=== PATIENT | female | born 1965 | race Caucasian/White ===

== ENCOUNTER 2017-02-27 17:52 | Emergency (ER) | payer OTHER ==
[~2017-02-27] VITALS: Wt 69.9 kg
[~2017-02-27 17:52] MED LIST: ALEVE220 MG PO; AUGMENTIN 875 M1 TAB PO; AUGMENTIN 875875 MG PO; BACTRIM DS 8001 TA1 PO; BENTYL20 MG PO; CALCIUM 600/VIT1 TAB PO; CIPRODEX 0.3%-7.5 ML OT; ENTERIC ASPIRI325 MG PO; FISH OIL 10001000 MG PO; FLEXERIL10 MG PO; HYDROCODONE BIT1 T11 PO; LEVOFLOXACIN500 MG PO; LEXAPRO; MOTRIN800 MG PO; NAPROSYN500 MG PO; NKHM; PERCOCET 325 MG1 TA2 PO; TRAMADOL HCL50 MG PO; ZOFRAN4 MG PO; Zofran4 MG PO
[2017-02-27 18:21] VITALS: BP 109/54
[2017-02-27 18:48] LABS: BASO # 0.1 10*3/uL (0.0-0.1); BASO % 0.6 % (0.0-1.0); EOS # 0.1 10*3/uL (0.0-0.4); EOS % 0.8 % (1.0-4.0); HEMOGLOBIN 12.9 g/dl (12.0-16.0); LYMPH # 2.6 10*3/uL (1.3-4.4); LYMPH % 29.3 % (27.0-41.0); MEAN CORPUSCULAR HGB 30.2 pg (27.0-31.0); MEAN CORPUSCULAR HGB CONC 33.9 g/dl (33.0-37.0); MEAN PLATELET VOLUME 9.8 fl (9.6-12.3); MONO # 0.5 10*3/uL (0.1-1.0); MONO % 5.3 % (3.0-9.0); NEUT # 5.6 10*3/uL (2.3-7.9); NEUT % 63.7 % (47.0-73.0); PLATELET COUNT AUTOMATED 193 10*3/uL (130-400); RED BLOOD COUNT 4.27 10*6/uL (4.10-5.10); RED CELL DISTRI WIDTH 12.2 % (0-14.5); WHITE BLOOD COUNT 8.8 10*3/uL (4.8-10.8)
[2017-02-27 19:04] LABS: ALBUMIN 4.1 gm/dl (3.1-4.5); ALKALINE PHOSPHATASE 69 U/L (45-117); BILIRUBIN, TOTAL 0.4 mg/dl (0.2-1.0); BUN 16 mg/dl (7-24); CARBON DIOXIDE 27 mmol/L (21-32); CHLORIDE 107 mmol/L (98-107); EST GLOM FILT AFRICAN AMERICAN > 60 ml/min; GLUCOSE 89 mg/dL (65-99); SGOT/AST 21 IU/L (3-35); SGPT/ALT 26 U/L (12-78); SODIUM 147 mmol/L (136-145); TOTAL PROTEIN 7.2 gm/dL (6.4-8.2)
== END 2017-02-27 19:28 | disposition left against medical advice (07) ==
LOC: ED 17:52
PROVIDERS: Emergency Medicine
DX: R10.33 Periumbilical pain (principal); Z98.51 Tubal ligation status; Z98.890 Other specified postprocedural states; Z90.710 Acquired absence of both cervix and uterus

== ENCOUNTER → 2017-03-07 | Outpatient (CLI) | payer OTHER | END | disposition home or self-care (01) | LOC: MAMMO 03-06 11:30 | DX: Z12.31 Encounter for screening mammogram for malignant neoplasm of breast (principal) ==

== ENCOUNTER 2018-01-06 11:53 | Emergency (ER) | payer OTHER ==
[~2018-01-06] VITALS: Ht 160 cm; Wt 68.9 kg
[2018-01-06 11:57] VITALS: BP 105/47
[2018-01-06 12:21] LABS: BASO % 0.3 % (0.0-1.0); EOS % 0.2 % (1.0-4.0); HEMATOCRIT 36.9 % (37.0-47.0); HEMOGLOBIN 12.4 g/dl (12.0-16.0); LYMPH # 1.3 10*3/uL (1.3-4.4); LYMPH % 10.5 % (27.0-41.0); MEAN CELL VOLUME 89.1 fl (81.0-99.0); MEAN CORPUSCULAR HGB CONC 33.6 g/dl (33.0-37.0); MEAN PLATELET VOLUME 9.9 fl (9.6-12.3); MONO # 0.9 10*3/uL (0.1-1.0); NEUT # 10.3 10*3/uL (2.3-7.9); NEUT % 81.4 % (47.0-73.0); PLATELET COUNT AUTOMATED 221 10*3/uL (130-400); RED BLOOD COUNT 4.14 10*6/uL (4.10-5.10); RED CELL DISTRI WIDTH 11.7 % (0-14.5); WHITE BLOOD COUNT 12.7 10*3/uL (4.8-10.8)
[2018-01-06 12:37] LABS: ALBUMIN 3.6 gm/dl (3.1-4.5); ALKALINE PHOSPHATASE 78 U/L (45-117); BUN 9 mg/dl (7-24); CHLORIDE 104 mmol/L (98-107); CREATININE 0.78 mg/dL (0.55-1.02); POTASSIUM 3.9 mmol/L (3.5-5.1); SGOT/AST 19 IU/L (3-35); SGPT/ALT 24 U/L (12-78); SODIUM 138 mmol/L (136-145); TOTAL PROTEIN 7.6 gm/dL (6.4-8.2)
[2018-01-06 12:39] LABS: TROPONIN I < 0.015 ng/ml (<0.045)
[2018-01-06] MEDS ORDERED: PREDNISONE50 MG PO (15:08)
[2018-01-06] MEDS ORDERED: LEVAQUIN750 M1 PO (15:08)
== END 2018-01-06 15:16 | disposition home or self-care (01) ==
LOC: ED 11:53
PROVIDERS: Student in an Organized Health Care Education/Training Program
DX: R05 Cough (principal); Z98.51 Tubal ligation status; Z98.890 Other specified postprocedural states

== ENCOUNTER 2019-03-18 00:12 | Emergency (ER) | payer OTHER ==
[~2019-03-18] VITALS: Ht 160 cm; Wt 70.3 kg
[~2019-03-18 00:12] MED LIST changes: +LEVAQUIN750 M1 PO; +PREDNISONE50 MG PO
[2019-03-18 00:35] VITALS: BP 111/48
[2019-03-18] MEDS ORDERED: OMNICEF300 MG PO ×2 (00:50→00:51)
[2019-03-18] MEDS ORDERED: ZOFRAN4 MG PO ×2 (00:50→00:51)
== END 2019-03-18 01:49 | disposition home or self-care (01) ==
LOC: ED 00:12
DX: H66.93 Otitis media, unspecified, bilateral (principal); H72.91 Unspecified perforation of tympanic membrane, right ear

== ENCOUNTER 2019-04-18 07:57 | Emergency (ER) | payer OTHER ==
[~2019-04-18] VITALS: Ht 160 cm; Wt 68.9 kg
[~2019-04-18 07:57] MED LIST changes: +OMNICEF300 MG PO
[2019-04-18 07:58] VITALS: BP 107/49
== END 2019-04-18 08:45 | disposition home or self-care (01) ==
LOC: ED 07:57
DX: H72.91 Unspecified perforation of tympanic membrane, right ear (principal); Z79.2 Long term (current) use of antibiotics

== ENCOUNTER 2019-04-28 18:42 | Emergency (ER) | payer OTHER ==
[~2019-04-28] VITALS: Ht 160 cm; Wt 67.3 kg
[2019-04-28 18:42] VITALS: BP 119/71
== END 2019-04-28 19:35 | disposition home or self-care (01) ==
LOC: ED 18:42
DX: S91.114A Laceration without foreign body of right lesser toe(s) without damage to nail, initial encounter (principal); Z79.2 Long term (current) use of antibiotics; Z79.899 Other long term (current) drug therapy; Z90.710 Acquired absence of both cervix and uterus; W22.8XXA Striking against or struck by other objects, initial encounter; Y93.89 Activity, other specified; Y92.098 Other place in other non-institutional residence as the place of occurrence of the external cause; Y99.8 Other external cause status

== ENCOUNTER 2020-04-03 12:48 | Emergency (ER) | payer OTHER ==
[~2020-04-03] VITALS: Ht 160 cm; Wt 72.1 kg
[2020-04-03 13:00] VITALS: BP 113/54
[2020-04-03] MEDS ORDERED: PREDNISONE20 M1 PO (13:49)
[2020-04-03] MEDS ORDERED: VISTARIL25 MG PO (13:49)
== END 2020-04-03 13:51 | disposition home or self-care (01) ==
LOC: ED 12:48
DX: L25.9 Unspecified contact dermatitis, unspecified cause (principal)

== ENCOUNTER → 2020-11-20 | Outpatient (CLI) | payer OTHER ==
[~2020-11-20] MED LIST changes: +PREDNISONE20 M1 PO; +VISTARIL25 MG PO
== END | disposition home or self-care (01) ==
LOC: MAMMO 11-09 10:30
PROVIDERS: ATTEND Nurse Practitioner Family
DX: Z12.31 Encounter for screening mammogram for malignant neoplasm of breast (principal)

== ENCOUNTER 2021-06-01 20:28 | Inpatient (IN) | payer OTHER ==
[~2021-06-01] VITALS: Ht 160 cm; Wt 71.9 kg
[2021-06-01 21:09] VITALS: BP 113/46
[2021-06-01 22:46] LABS: BASO % 0.2 % (0.0-1.0); EOS % 0.1 % (1.0-4.0); HEMATOCRIT 39.6 % (37.0-47.0); LYMPH # 1.5 10*3/uL (1.3-4.4); LYMPH % 12.1 % (27.0-41.0); MEAN CELL VOLUME 89.8 fl (81.0-99.0); MEAN CORPUSCULAR HGB 30.6 pg (27.0-31.0); MEAN CORPUSCULAR HGB CONC 34.1 g/dl (33.0-37.0); MONO # 0.8 10*3/uL (0.1-1.0); MONO % 6.3 % (3.0-9.0); NEUT # 9.8 10*3/uL (2.3-7.9); PLATELET COUNT AUTOMATED 338 10*3/uL (130-400); RED BLOOD COUNT 4.41 10*6/uL (4.10-5.10); RED CELL DISTRI WIDTH 12.1 % (0-14.5); WHITE BLOOD COUNT 12.1 10*3/uL (4.8-10.8)
[2021-06-01 23:23] LABS: ALBUMIN 3.3 gm/dl (3.1-4.5); ALKALINE PHOSPHATASE 65 U/L (45-117); BUN 10 mg/dl (7-24); CHLORIDE 108 mmol/L (98-107); CREATININE 0.61 mg/dL (0.55-1.02); POTASSIUM 3.7 mmol/L (3.5-5.1); SGOT/AST 18 IU/L (3-35); SGPT/ALT 29 U/L (12-78); SODIUM 140 mmol/L (136-145); TOTAL PROTEIN 6.7 gm/dL (6.4-8.2)
[2021-06-02 00:15] VITALS: BP 122/64
[2021-06-02 05:44] VITALS: BP 124/60
[2021-06-02 07:31] LABS: BASO % 0.4 % (0.0-1.0); EOS # 0.1 10*3/uL (0.0-0.4); EOS % 0.5 % (1.0-4.0); HEMATOCRIT 36.3 % (37.0-47.0); LYMPH # 2.1 10*3/uL (1.3-4.4); LYMPH % 21.8 % (27.0-41.0); MEAN CELL VOLUME 91.2 fl (81.0-99.0); MEAN CORPUSCULAR HGB 30.4 pg (27.0-31.0); MEAN CORPUSCULAR HGB CONC 33.3 g/dl (33.0-37.0); MEAN PLATELET VOLUME 9.8 fl (9.6-12.3); MONO # 0.8 10*3/uL (0.1-1.0); MONO % 8.7 % (3.0-9.0); NEUT # 6.6 10*3/uL (2.3-7.9); NEUT % 68.3 % (47.0-73.0); PLATELET COUNT AUTOMATED 187 10*3/uL (130-400); RED BLOOD COUNT 3.98 10*6/uL (4.10-5.10); WHITE BLOOD COUNT 9.7 10*3/uL (4.8-10.8)
[2021-06-02 07:58] LABS: ALBUMIN 3.1 gm/dl (3.1-4.5); BUN 10 mg/dl (7-24); CHLORIDE 110 mmol/L (98-107); CREATININE 0.58 mg/dL (0.55-1.02); POTASSIUM 3.7 mmol/L (3.5-5.1); SGOT/AST 18 IU/L (3-35); SGPT/ALT 26 U/L (12-78); SODIUM 141 mmol/L (136-145); TRIGLYCERIDES 69 mg/dl (<150)
[2021-06-02 08:00] VITALS: BP 126/64
[2021-06-02 08:01] LABS: ALKALINE PHOSPHATASE 64 U/L (45-117); CHOLESTEROL 134 mg/dL (<200); LDL CHOLESTEROL 34 mg/dL (9-159); TOTAL PROTEIN 6.5 gm/dL (6.4-8.2)
[2021-06-02 12:00] VITALS: BP 122/78
[2021-06-02] MEDS ORDERED: ZOFRAN4 MG PO (12:53)
[2021-06-02] MEDS ORDERED: MECLIZINE HYD12.5 MG PO (12:53)
[2021-06-02] MEDS ORDERED: AUGMENTIN 875-875 MG PO (12:53)
[2021-06-08] MEDS ORDERED: VIBRAMYCIN100 MG PO (15:09)
== END 2021-06-02 13:25 | disposition home or self-care (01) | DRG 720 ==
LOC: ED 20:28 → EDHOLD 06-02 05:58
PROVIDERS: Internal Medicine; Physician Assistant; ADMIT Emergency Medicine; ATTEND Emergency Medicine
DX: A41.9 Sepsis, unspecified organism (principal); H70.91 Unspecified mastoiditis, right ear; H66.91 Otitis media, unspecified, right ear; E87.8 Other disorders of electrolyte and fluid balance, not elsewhere classified; E44.0 Moderate protein-calorie malnutrition; G62.9 Polyneuropathy, unspecified; H72.91 Unspecified perforation of tympanic membrane, right ear; M54.30 Sciatica, unspecified side; Z98.891 History of uterine scar from previous surgery; Z90.710 Acquired absence of both cervix and uterus; Z82.5 Family history of asthma and other chronic lower respiratory diseases; Z82.0 Family history of epilepsy and other diseases of the nervous system; Z79.899 Other long term (current) drug therapy

== ENCOUNTER 2021-07-27 10:10 | Emergency (ER) | payer OTHER ==
[~2021-07-27] VITALS: Ht 160 cm; Wt 71.7 kg
[~2021-07-27 10:10] MED LIST changes: +AUGMENTIN 875-875 MG PO; +MECLIZINE HYD12.5 MG PO; +VIBRAMYCIN100 MG PO
[2021-07-27 10:26] VITALS: BP 82/55
[2021-07-27] MEDS ORDERED: AUGMENTIN 875875 MG PO ×2 (11:22)
== END 2021-07-27 12:19 | disposition home or self-care (01) ==
LOC: ED 10:10
DX: S61.451A Open bite of right hand, initial encounter (principal); Z23 Encounter for immunization; W54.0XXA Bitten by dog, initial encounter; Y93.89 Activity, other specified; Y92.89 Other specified places as the place of occurrence of the external cause; Y99.8 Other external cause status

== ENCOUNTER 2021-07-30 14:18 | Emergency (ER) | payer OTHER ==
[~2021-07-30] VITALS: Ht 160 cm; Wt 71.2 kg
[2021-07-30 14:29] VITALS: BP 96/53
== END 2021-07-30 15:37 | disposition home or self-care (01) ==
LOC: ED 14:18
DX: Z23 Encounter for immunization (principal)

== ENCOUNTER 2021-08-03 12:01 | Emergency (ER) | payer OTHER ==
[~2021-08-03] VITALS: Ht 160 cm; Wt 71.2 kg
[2021-08-03 12:29] VITALS: BP 104/52
== END 2021-08-03 12:43 | disposition home or self-care (01) ==
LOC: ED 12:01
DX: Z23 Encounter for immunization (principal)

== ENCOUNTER 2021-08-10 16:48 | Emergency (ER) | payer OTHER ==
[~2021-08-10] VITALS: Ht 160 cm; Wt 71.2 kg
[2021-08-10 17:25] VITALS: BP 98/41
[2021-08-10] MEDS ORDERED: CLOTRIMAZOLE 1010 ML OT (18:20)
== END 2021-08-10 18:30 | disposition home or self-care (01) ==
LOC: ED 16:48
DX: Z23 Encounter for immunization (principal)

== ENCOUNTER → 2021-08-24 | Outpatient (CLI) | payer OTHER ==
[~2021-08-24] MED LIST changes: +CLOTRIMAZOLE 1010 ML OT
== END | disposition home or self-care (01) ==
LOC: RAD 15:18
PROVIDERS: ATTEND Orthopaedic Surgery
DX: M25.512 Pain in left shoulder (principal)

== ENCOUNTER → 2021-09-11 | Outpatient (CLI) | payer OTHER | LOC: COVID19 14:55 | PROVIDERS: ATTEND Internal Medicine | DX: Z11.52 Encounter for screening for COVID-19 (principal); Z20.822 Contact with and (suspected) exposure to COVID-19 ==

== ENCOUNTER → 2022-09-10 | Outpatient (CLI) | payer OTHER | END | disposition home or self-care (01) | LOC: RAD 16:31 | PROVIDERS: ATTEND Nurse Practitioner Family | DX: M79.671 Pain in right foot (principal); M25.561 Pain in right knee; M25.461 Effusion, right knee ==

== ENCOUNTER 2022-11-08 04:00 | Emergency (ER) | payer OTHER ==
[~2022-11-08] VITALS: Ht 165.1 cm; Wt 99.8 kg
[2022-11-08 04:09] VITALS: BP 103/78
[2022-11-08] MEDS ORDERED: AMOX-CLAV 875-1 EACH PO (04:11)
== END 2022-11-08 04:20 | disposition home or self-care (01) ==
LOC: ED 04:00
DX: S61.451A Open bite of right hand, initial encounter (principal); Z90.710 Acquired absence of both cervix and uterus; Z98.890 Other specified postprocedural states; W55.01XA Bitten by cat, initial encounter; Y93.89 Activity, other specified; Y92.89 Other specified places as the place of occurrence of the external cause; Y99.8 Other external cause status

== ENCOUNTER → 2023-02-10 | Day surgery (SDC) | payer OTHER ==
[~2023-02-10] VITALS: Ht 160 cm; Wt 77.6 kg
[~2023-02-10] MED LIST changes: +AMOX-CLAV 875-1 EACH PO; +HYDROCODONE-AC1 EAC1 PO
[2023-02-10 10:06] VITALS: BP 94/50
[2023-02-10 10:58] VITALS: BP 89/41
[2023-02-10 11:13] VITALS: BP 96/53
[2023-02-10 11:28] VITALS: BP 98/51
== END ==
LOC: SDC 02-06 13:15
PROVIDERS: ATTEND Surgery
DX: H61.22 Impacted cerumen, left ear (principal); C44.219 Basal cell carcinoma of skin of left ear and external auricular canal; Z79.899 Other long term (current) drug therapy; Z98.891 History of uterine scar from previous surgery

== ENCOUNTER 2023-04-24 21:45 | Emergency (ER) | payer OTHER ==
[~2023-04-24] VITALS: Ht 160 cm; Wt 73.9 kg
[2023-04-24 22:00] VITALS: BP 114/54
== END 2023-04-25 00:04 | disposition home or self-care (01) ==
LOC: ED 21:45
DX: S81.812A Laceration without foreign body, left lower leg, initial encounter (principal); Z87.442 Personal history of urinary calculi; Z90.710 Acquired absence of both cervix and uterus; Z98.890 Other specified postprocedural states; W31.89XA Contact with other specified machinery, initial encounter; Y93.89 Activity, other specified; Y92.009 Unspecified place in unspecified non-institutional (private) residence as the place of occurrence of the external cause; Y99.8 Other external cause status

== ENCOUNTER 2023-05-07 13:49 | Emergency (ER) | payer OTHER ==
[~2023-05-07] VITALS: Ht 160 cm; Wt 72.6 kg
[2023-05-07 14:00] VITALS: BP 109/64
[2023-05-07 15:19] LABS: BASO % 0.6 % (0.0-1.0); EOS # 0.2 10*3/uL (0.0-0.4); EOS % 2.5 % (1.0-4.0); HEMATOCRIT 39.6 % (37.0-47.0); LYMPH % 29.3 % (27.0-41.0); MEAN CORPUSCULAR HGB 30.1 pg (27.0-31.0); MEAN CORPUSCULAR HGB CONC 33.1 g/dl (33.0-37.0); MEAN PLATELET VOLUME 9.5 fl (9.6-12.3); MONO # 0.5 10*3/uL (0.1-1.0); MONO % 7.5 % (3.0-9.0); NEUT # 4.1 10*3/uL (2.3-7.9); NEUT % 59.7 % (47.0-73.0); PLATELET COUNT AUTOMATED 232 10*3/uL (130-400); RED BLOOD COUNT 4.35 10*6/uL (4.10-5.10); RED CELL DISTRI WIDTH 12.7 % (0-14.5); WHITE BLOOD COUNT 6.9 10*3/uL (4.8-10.8)
[2023-05-07 15:32] LABS: ACT PARTIAL THROMBO TIME 27.6 SECONDS (20.0-32.1)
[2023-05-07 15:40] LABS: ALKALINE PHOSPHATASE 75 U/L (46-116); BUN 17 mg/dl (9-23); CHLORIDE 108 mmol/L (98-107); LIPASE 47 U/L (12-53); POTASSIUM 4.1 mmol/L (3.4-5.1); SGPT/ALT 22 U/L (10-49); TOTAL PROTEIN 6.9 gm/dL (6.0-8.0)
[2023-05-07] MEDS ORDERED: VIBRA-TAB100 MG PO (17:00)
== END 2023-05-07 17:02 | disposition home or self-care (01) ==
LOC: ED 13:49
PROVIDERS: Emergency Medicine
DX: S81.812D Laceration without foreign body, left lower leg, subsequent encounter (principal); L08.9 Local infection of the skin and subcutaneous tissue, unspecified; R50.9 Fever, unspecified; Z88.8 Allergy status to other drugs, medicaments and biological substances; Z90.711 Acquired absence of uterus with remaining cervical stump; Z98.890 Other specified postprocedural states; Z98.51 Tubal ligation status; V84.5XXD Driver of special agricultural vehicle injured in nontraffic accident, subsequent encounter

== ENCOUNTER → 2023-10-22 | Outpatient (CLI) | payer OTHER ==
[~2023-10-22] MED LIST changes: +VIBRA-TAB100 MG PO
== END | disposition home or self-care (01) ==
LOC: RAD 12:11
PROVIDERS: ATTEND Podiatrist Foot & Ankle Surgery
DX: M65.821 Other synovitis and tenosynovitis, right upper arm (principal)

== ENCOUNTER 2024-01-11 11:33 | Emergency (ER) | payer OTHER ==
[~2024-01-11] VITALS: Ht 160 cm; Wt 76.7 kg
[2024-01-11 12:05] VITALS: BP 105/82
[2024-01-11] MEDS ORDERED: ACETAMINOPHEN 325 MG TAB PO ONE (12:20)
== END 2024-01-11 14:09 | disposition home or self-care (01) ==
LOC: ED 11:33
DX: S39.012A Strain of muscle, fascia and tendon of lower back, initial encounter (principal); S20.211A Contusion of right front wall of thorax, initial encounter; Z98.890 Other specified postprocedural states; Z90.710 Acquired absence of both cervix and uterus; Z98.51 Tubal ligation status; Z87.442 Personal history of urinary calculi; W01.0XXA Fall on same level from slipping, tripping and stumbling without subsequent striking against object, initial encounter; Y93.89 Activity, other specified; Y92.89 Other specified places as the place of occurrence of the external cause; Y99.8 Other external cause status

== ENCOUNTER 2024-08-04 17:55 | Emergency (ER) | payer OTHER ==
[~2024-08-04] VITALS: Ht 160 cm; Wt 77.1 kg
[2024-08-04 18:09] VITALS: BP 91/44
[2024-08-04] MEDS ORDERED: Rabies Vaccine 1 ML VIAL IM ONE (18:20)
== END 2024-08-04 18:33 | disposition home or self-care (01) ==
LOC: ED 17:55
DX: Z23 Encounter for immunization (principal); Z20.3 Contact with and (suspected) exposure to rabies; Z90.710 Acquired absence of both cervix and uterus; Z98.890 Other specified postprocedural states; Z87.442 Personal history of urinary calculi

== ENCOUNTER 2024-08-07 21:26 | Emergency (ER) | payer OTHER ==
[~2024-08-07] VITALS: Ht 160 cm; Wt 77.6 kg
[2024-08-07 21:40] VITALS: BP 113/56
[2024-08-07] MEDS ORDERED: Rabies Vaccine 1 ML VIAL IM ONE (21:45)
== END 2024-08-07 22:15 | disposition home or self-care (01) ==
LOC: ED 21:26
DX: Z23 Encounter for immunization (principal); Z87.442 Personal history of urinary calculi; Z90.710 Acquired absence of both cervix and uterus; Z98.890 Other specified postprocedural states

== ENCOUNTER 2024-08-16 18:38 | Emergency (ER) | payer OTHER ==
[~2024-08-16] VITALS: Ht 160 cm; Wt 77.6 kg
[2024-08-16 19:11] VITALS: BP 111/61
[2024-08-16] MEDS ORDERED: Rabies Vaccine 1 ML VIAL IM ONE (19:20)
== END 2024-08-16 19:38 | disposition home or self-care (01) ==
LOC: ED 18:38
DX: Z23 Encounter for immunization (principal); Z90.710 Acquired absence of both cervix and uterus; Z98.890 Other specified postprocedural states; Z87.442 Personal history of urinary calculi

== ENCOUNTER 2024-08-22 20:09 | Emergency (ER) | payer OTHER ==
[~2024-08-22] VITALS: Ht 162.5 cm; Wt 77.6 kg
[2024-08-22] MEDS ORDERED: Rabies Vaccine 1 ML VIAL IM ONE (20:15)
[2024-08-22 20:23] VITALS: BP 115/54
== END 2024-08-22 21:00 | disposition home or self-care (01) ==
LOC: ED 20:09
DX: Z23 Encounter for immunization (principal); Z87.442 Personal history of urinary calculi; Z90.710 Acquired absence of both cervix and uterus; Z98.890 Other specified postprocedural states

== ENCOUNTER → 2024-09-07 | Outpatient (CLI) | payer OTHER | END | disposition home or self-care (01) | LOC: RAD 09:39 | PROVIDERS: ATTEND Chiropractor Orthopedic | DX: M47.816 Spondylosis without myelopathy or radiculopathy, lumbar region (principal); M47.812 Spondylosis without myelopathy or radiculopathy, cervical region; M16.0 Bilateral primary osteoarthritis of hip; M99.01 Segmental and somatic dysfunction of cervical region; M99.03 Segmental and somatic dysfunction of lumbar region; M25.559 Pain in unspecified hip; M54.50 Low back pain, unspecified ==

== ENCOUNTER 2025-03-11 20:02 | Emergency (ER) | payer OTHER ==
[~2025-03-11] VITALS: Ht 160 cm; Wt 77.1 kg
[2025-03-11 20:26] VITALS: BP 106/58
[2025-03-11] MEDS ORDERED: SODIUM CHLORIDE 0.9% 500 ML IV ONE (21:00)
[2025-03-11] MEDS ORDERED: Metoclopramide Hydrochloride 10 MG/2 ML VIAL IV ONE (21:00)
[2025-03-11] MEDS ORDERED: Ondansetron Hydrochloride 4 MG/2 ML VIAL IV ONE (21:00)
[2025-03-11] MEDS ORDERED: diphenhydrAMINE hydrochloride 50 MG/ML VIAL IV ONE (21:00)
[2025-03-11 21:14] LABS: BASO # 0.0 10*3/uL (0.0-0.1); BASO % 0.5 % (0.0-1.0); EOS # 0.1 10*3/uL (0.0-0.4); EOS % 1.1 % (1.0-4.0); MEAN CELL VOLUME 91.6 fl (81.0-99.0); MEAN CORPUSCULAR HGB 30.7 pg (27.0-31.0); MEAN PLATELET VOLUME 9.9 fl (9.6-12.3); MONO # 0.6 10*3/uL (0.1-1.0); MONO % 8.0 % (3.0-9.0); NEUT # 4.4 10*3/uL (2.3-7.9); NEUT % 54.4 % (47.0-73.0); NUCLEATED RED BLOOD CELL 0.0 % (0.0-0.0); NUCLEATED RED BLOOD CELL 0.0 10*3/uL (0.0-0.0); PLATELET COUNT AUTOMATED 220 10*3/uL (130-400); RED CELL DISTRI WIDTH 12.3 % (0-14.5)
[2025-03-11 21:36] LABS: BUN 17 mg/dl (9-23); SGPT/ALT 29 U/L (5-49)
[2025-03-11] MEDS ORDERED: Ondansetron4 MG PO (22:01)
[2025-03-11] MEDS ORDERED: REGLAN10 M1 PO (22:01)
[2025-03-11] MEDS ORDERED: OMEPRAZOLE40 MG PO (22:01)
== END 2025-03-11 22:21 | disposition home or self-care (01) ==
LOC: ED 20:02
PROVIDERS: Emergency Medicine
DX: K29.70 Gastritis, unspecified, without bleeding (principal); K59.00 Constipation, unspecified; Z90.710 Acquired absence of both cervix and uterus; Z98.890 Other specified postprocedural states

== ENCOUNTER → 2025-07-14 | Outpatient (CLI) | payer OTHER ==
[~2025-07-14] MED LIST changes: +OMEPRAZOLE40 MG PO; +Ondansetron4 MG PO; +REGLAN10 M1 PO
[2025-07-14 14:19] LABS: BASO # 0.0 10*3/uL (0.0-0.1); BASO % 0.6 % (0.0-1.0); EOS # 0.1 10*3/uL (0.0-0.4); EOS % 1.0 % (1.0-4.0); MEAN CELL VOLUME 93.7 fl (81.0-99.0); MEAN CORPUSCULAR HGB 30.5 pg (27.0-31.0); MEAN PLATELET VOLUME 9.7 fl (9.6-12.3); MONO # 0.6 10*3/uL (0.1-1.0); MONO % 8.2 % (3.0-9.0); NEUT # 4.4 10*3/uL (2.3-7.9); NEUT % 60.7 % (47.0-73.0); NUCLEATED RED BLOOD CELL 0.0 % (0.0-0.0); NUCLEATED RED BLOOD CELL 0.0 10*3/uL (0.0-0.0); PLATELET COUNT AUTOMATED 246 10*3/uL (130-400); RED CELL DISTRI WIDTH 11.9 % (0-14.5)
[2025-07-14 14:34] LABS: BUN 14 mg/dl (9-23); FREE T4 1.09 ng/dl (0.89-1.76); SGPT/ALT 29 U/L (5-49)
== END | disposition home or self-care (01) ==
LOC: LAB 13:36
PROVIDERS: ATTEND Nurse Practitioner
DX: R12 Heartburn (principal); R14.3 Flatulence; R68.81 Early satiety; R10.9 Unspecified abdominal pain; R14.0 Abdominal distension (gaseous); K21.9 Gastro-esophageal reflux disease without esophagitis